=== PATIENT | female | born 1940 | race Caucasian/White ===

== ENCOUNTER → 2017-05-24 | Outpatient (CLI) | payer MEDICARE, OTHER ==
--- NOTE | 2017-05-24 10:44 | RAD ---
EXAM DESCRIPTION: Knee,Right Complete CLINICAL HISTORY: 76 years, Female, KNEE PAIN COMPARISON: None. FINDINGS: No fracture or dislocation. Mild narrowing patellofemoral joint space with spurring. Slight narrowing medially. Mild prepatellar soft tissue swelling. Small amount of arterial calcification. IMPRESSION: Mild degenerative change without fracture or dislocation Electronically signed by: Aaron Summers MD 05/24/2017 10:43 AM CDT
--- NOTE | 2017-05-24 10:44 | RAD ---
EXAM DESCRIPTION: Knee, left Complete CLINICAL HISTORY: 76 years, Female, KNEE PAIN COMPARISON: None available FINDINGS: No fracture or dislocation. Mild tricompartmental osteophytic change particularly patellofemoral joint space with spurring. No definite joint effusion. Moderate arterial calcification noted. IMPRESSION: Moderate degenerative change without fracture or dislocation Electronically signed by: Aaron Summers MD 05/24/2017 10:43 AM CDT
--- NOTE | 2017-05-24 10:45 | RAD ---
EXAM DESCRIPTION: Wrist,Right 3 Views CLINICAL HISTORY: 76 years, Female, WRIST PAIN COMPARISON: None. FINDINGS: No fracture or dislocation. Mild degenerative narrowing radiocarpal joint space. Mild degenerative change 1st carpometacarpal joint. IMPRESSION: Mild degenerative change without fracture or dislocation Electronically signed by: Aaron Summers MD 05/24/2017 10:44 AM CDT
== END | disposition home or self-care (01) ==
LOC: RAD 07:55
PROVIDERS: ATTEND Orthopaedic Surgery
DX: M25.562 Pain in left knee (principal); M25.552 Pain in left hip; M25.551 Pain in right hip; M25.531 Pain in right wrist

== ENCOUNTER → 2017-07-08 | Outpatient (CLI) | payer SELFPAY ==
--- NOTE | 2017-07-09 07:48 | CT ---
EXAM DESCRIPTION: Chest w/o Contrast CLINICAL HISTORY: INTERCOSTAL PAIN COMPARISON: None. TECHNIQUE: Noncontrast transaxial CT images of the chest are obtained. 3-D reconstructed images of the osseous structures are obtained. This exam was performed according to our departmental dose-optimization program, which includes automated exposure control, adjustment of the mA and/or kV according to patient size and/or use of iterative reconstruction technique . FINDINGS: The heart shows severe coronary artery calcifications with moderate scattered calcified plaque of the thoracic aorta and great vessels. There is dense calcified plaque at the origin of the left subclavian artery raising suspicion for high-grade stenosis or occlusion. Given the limitations of a noncontrast exam no pathologically enlarged mediastinal, hilar, or axillary lymphadenopathy is seen. No significant pleural or pericardial effusion is seen. Visualized upper abdomen shows a less than 1 cm hypodensity in the dome of the right lobe liver that is too small to adequately characterize, but likely represents cyst. There is a fluid attenuation exophytic cyst of the upper pole right kidney measuring 2.4 cm. The lungs are mildly hyperinflated without acute infiltrate or consolidation. Mild centrilobular emphysematous changes are seen. Calcified pulmonary nodule in the right lower lobe is seen. Mild to moderate disc degenerative changes of the dressing spine are seen. Healed nondisplaced fractures of the right third through fifth ribs are seen. T6-7 shows posterior disc osteophytic ridging contributing to at least mild spinal canal stenosis. There is a mildly comminuted fracture of the sternum approximately 3 cm below the sternomanubrial joint. IMPRESSION: Mildly comminuted fracture of the sternum without significant angulation of the fracture fragments. Fragments appear somewhat indistinct suggesting at least partial healing. Mostly healed right third through fifth rib fractures are noted. Severe coronary artery disease. Severe calcified plaque at the origin of the left subclavian as described above. Electronically signed by: Christiano Garces MD 07/09/2017 7:47 AM CDT
== END | disposition home or self-care (01) ==
LOC: CT 09:22
PROVIDERS: ATTEND Family Medicine
DX: R07.82 Intercostal pain (principal); V89.2XXA Person injured in unspecified motor-vehicle accident, traffic, initial encounter

== ENCOUNTER → 2017-10-13 | Outpatient (CLI) | payer MEDICARE, OTHER | END | disposition home or self-care (01) | LOC: GMAB 10:27 | PROVIDERS: ATTEND Family Medicine | DX: E03.9 Hypothyroidism, unspecified (principal); I10 Essential (primary) hypertension ==

== ENCOUNTER → 2018-10-25 | Outpatient (CLI) | payer MEDICARE, OTHER | LOC: GMAE 10:47 | PROVIDERS: ATTEND Family Medicine | DX: E03.9 Hypothyroidism, unspecified (principal) ==

== ENCOUNTER → 2020-01-18 | Outpatient (CLI) | payer MEDICARE, OTHER | LOC: GMAE 12:36 | PROVIDERS: ATTEND Family Medicine | DX: E03.9 Hypothyroidism, unspecified (principal); I10 Essential (primary) hypertension; E78.2 Mixed hyperlipidemia ==

== ENCOUNTER → 2020-04-18 | Outpatient (CLI) | payer MEDICARE, OTHER | LOC: GMAE 10:20 | PROVIDERS: ATTEND Family Medicine | DX: E03.9 Hypothyroidism, unspecified (principal) ==

== ENCOUNTER 2020-10-14 09:36 | Emergency (ER) | payer MEDICARE, OTHER ==
[2020-10-14] MEDS: SODIUM CHLORIDE 0.9% 1000ML 1,000 ML IVS ONE (10:13)
--- NOTE | 2020-10-14 10:15 | RAD ---
EXAM DESCRIPTION: Chest,2 Views CLINICAL HISTORY: cough COMPARISON: Previous CT chest July 08, 2017 TECHNIQUE: PA/lateral FINDINGS: Heart size is normal with normal pulmonary vascularity. No pleural effusion or pneumothorax. Consolidative infiltrate is seen in the right upper lobe consistent with pneumonia. Question minimal infiltrate in the upper lingular region peripherally these findings are new compared to the previous CT of the chest July 08, 2017. Lateral view shows intact sternum and T-spine. IMPRESSION: Infiltrate in the right upper lobe consistent with pneumonia. Question additional early infiltrate in the lingula. Electronically signed by: Cj Roberts MD 10/14/2020 10:13 AM [facility]
--- NOTE | 2020-10-14 12:58 | ED.PDOC ---
History of Present Illness - General Chief Complaint: General Stated Complaint: coughing up blood, fever Time Seen by Provider: 10/14/20 09:48 Source: patient, family - , SEEMS TO BE MORE RELIABLE HISTORICAL SOURCE THAN PATIENT, MEMORY SEEMS TO BE AN ISSUE FOR HER. - History of Present Illness Comments: 3 DAY HX OF FEVER, NAUSEA, VOMITING, DIARRHEA, COUGH, LOST OF TASTE AND SMELL, WITH SIMILAR SYMPTOMS. Cough Quality/Degree: moderate Possible Cause: no prior episodes Improving Factors: nothing Worsening Factors: nothing Associated Symptoms: cough, fever/chills, headache, lightheadedness, muscle aches, nasal congestion Allergies/Adverse Reactions: Allergies NO KNOWN ALLERGY Allergy (Verified 10/14/20 09:56) Home Medications: Ambulatory Orders Azithromycin [Zithromax] 500 mg PO DAILY #5 tab 10/14/20 Ondansetron Odt [Zofran ODT] 8 mg PO Q8H PRN #15 tab 10/14/20 Review of Systems - Review of Systems Constitutional: States: see HPI EENTM: States: see HPI Respiratory: States: see HPI Cardiology: States: no symptoms reported Gastrointestinal/Abdominal: States: see HPI Genitourinary: States: no symptoms reported Musculoskeletal: States: see HPI Skin: States: no symptoms reported Neurological: States: no symptoms reported Past Medical History (General) - Patient Medical History Hx of COPD: No Hx Cardiac Disorders: No Hx Congestive Heart Failure: No Hx Hypertension: Yes Hx Thyroid Disease: Yes Hx Diabetes: No Hx Cancer: No Hx Hepatitis C: No Surgical History: Hysterectomy - Vaccination History Hx Tetanus, Diphtheria Vaccination: No Hx Influenza Vaccination: Yes Hx Pneumococcal Vaccination: Yes - Social History Hx Tobacco Use: No Hx Alcohol Use: Yes - SOCIALLY Hx Substance Use: No Hx Depression: No Family Medical History - Family History Mother Living Status: Physical Exam - Physical Exam General Appearance: Alert, Well Developed, Well Groomed, Well Hydrated, Well Nourished Eye Exam: bilateral normal ENT Exam: normal ENT inspection, TMs normal, pharynx normal, nasal congestion Neck: non-tender, full range of motion, supple, normal inspection, trachea midline Respiratory: chest non-tender, lungs clear, normal breath sounds, no respiratory distress Cardiovascular/Chest: normal peripheral pulses, regular rate, rhythm, no edema, no gallop Gastrointestinal/Abdominal: normal bowel sounds, non tender, soft, no organomegaly Neurologic: alert, normal mood/affect, oriented x 3 Skin Exam: normal color, warm/dry Lymphatic: no adenopathy Departure - Departure Clinical Impression: COVID-19 Pneumonia Qualifiers: Pneumonia type: due to unspecified organism Laterality: right Lung location: upper lobe of lung Qualified Code(s): J18.9 - Pneumonia, unspecified organism Time of Disposition: 13:02 Disposition: Discharge to Home or Self Care Condition: Fair Departure Forms: ED Discharge - Pt. Copy, Patient Portal Self Enrollment Instructions: Pneumonia, Adult (DC), Coronavirus Disease 2019 (COVID-19) Overview Referrals: BRISSA HUNG MD [Primary Care Provider] - 1-2 Weeks Prescriptions: Azithromycin [Zithromax] 500 mg PO DAILY #5 tab Ondansetron Odt [Zofran ODT] 8 mg PO Q8H PRN #15 tab PRN Reason: nausea, vomiting Home Medications: Ambulatory Orders Azithromycin [Zithromax] 500 mg PO DAILY #5 tab 10/14/20 Ondansetron Odt [Zofran ODT] 8 mg PO Q8H PRN #15 tab 10/14/20 Additional Instructions: VIRTUAL VISIT WITH YOUR PCP WITHIN THE NEXT 48 HOURS. RETURN TO ER FOR SEVERE SHORTNESS OF BREATH.
[2020-10-14 13:17] VITALS: BP 165/80; TEMP 99.8; O2SAT 96
== END 2020-10-14 13:17 | disposition home or self-care (01) ==
LOC: ER 09:36
DX: U07.1 COVID-19 (principal); J12.82 Pneumonia due to coronavirus disease 2019; E07.9 Disorder of thyroid, unspecified; I10 Essential (primary) hypertension

== ENCOUNTER → 2020-10-24 | Outpatient (CLI) | payer MEDICARE, OTHER ==
--- NOTE | 2020-10-24 15:30 | CT ---
EXAM DESCRIPTION: Chest w/o Contrast CLINICAL HISTORY: HEMOPTYSIS COMPARISON: July 08, 2017 TECHNIQUE: Noncontrast transaxial CT images of the chest are obtained. This exam was performed according to our departmental dose-optimization program, which includes automated exposure control, adjustment of the mA and/or kV according to patient size and/or use of iterative reconstruction technique . FINDINGS: Heart is enlarged. Severe coronary artery calcifications. Scattered calcified plaque of the thoracic aorta with severe calcified plaque of the origin of the left subclavian artery suggesting high-grade stenosis. Interval increased size and number of mediastinal and hilar lymph nodes. Proximal pretracheal lymph node measures 10 mm short axis. Right precarinal lymph node measures 15 mm. No axillary lymphadenopathy. Visualized upper abdomen shows no acute findings. Fluid attenuation exophytic cortical cyst of the upper pole right kidney measures 2.5 cm. Lungs are normally aerated. Interval development of peripheral bilateral interstitial alveolar pulmonary infiltrates with largest area infiltrate in the mid to inferior right upper lobe. Several areas in a somewhat nodular appearance. Somewhat thick-walled cavitary lesion in the periphery of the inferior right upper lobe is new measuring 3.1 x 2.4 cm. Osseous structures show no aggressive bony lesions. Disc degenerative disease and facet arthropathy of the thoracic spine is seen. IMPRESSION: Interval development of bilateral mostly peripheral pulmonary airspace infiltrates. Several lesions have a nodular appearance. Differential includes pneumonia versus atypical metastatic lesions. Thick-walled cavitary lesion of the inferior right upper lobe measuring 3.1 cm is concerning for neoplastic process versus lung abscess. Interval increased size and number of mediastinal lymph nodes concerning for lymphatic spread of neoplastic process versus reactive lymphadenopathy. Electronically signed by: Christiano Garces MD 10/24/2020 3:28 PM [facility]
== END ==
LOC: CT 08:30
PROVIDERS: ATTEND Family Medicine
DX: R04.2 Hemoptysis (principal); R91.8 Other nonspecific abnormal finding of lung field; R59.0 Localized enlarged lymph nodes